=== PATIENT | male | born 1995 | race Caucasian/White ===

== ENCOUNTER 2018-05-16 10:04 | Emergency (ER) | payer OTHER ==
[~2018-05-16] VITALS: Ht 180.3 cm; Wt 77.1 kg
[2018-05-16 10:14] VITALS: BP 152/83; Ht 180.3 cm; Wt 77.1 kg
== END 2018-05-16 12:07 | disposition home or self-care (01) ==
LOC: ED 10:04
DX: J02.9 Acute pharyngitis, unspecified (principal)